=== PATIENT | female | born 1930 | race Caucasian/White ===

== ENCOUNTER → 2017-03-03 | Outpatient (CLI) | payer MEDICARE, BC ==
[~2017-03-03] MED LIST: REGADENOSON 0.4 MG/5 ML SYRINGE ONE
== END | disposition home or self-care (01) ==
LOC: CVU 06:39
PROVIDERS: ATTEND Internal Medicine Cardiovascular Disease
DX: I49.3 Ventricular premature depolarization (principal); Q21.1 Atrial septal defect; Z87.891 Personal history of nicotine dependence; I08.1 Rheumatic disorders of both mitral and tricuspid valves; E78.5 Hyperlipidemia, unspecified
CPT/HCPCS: 93306; J2785

== ENCOUNTER → 2017-03-04 | Outpatient (CLI) | payer MEDICARE, BC | END | disposition home or self-care (01) | LOC: CFH 07:50 | PROVIDERS: ATTEND Internal Medicine Cardiovascular Disease | DX: I49.3 Ventricular premature depolarization (principal) | CPT/HCPCS: 78452; 93017; A9502 ==

== ENCOUNTER 2019-04-03 11:07 | Emergency (ER) | payer MEDICARE, BC ==
[~2019-04-03] VITALS: Ht 170.2 cm; Wt 78.0 kg
--- NOTE | 2019-04-03 11:52 | NUR ---
assumed care at this time.
[2019-04-03] MEDS ORDERED: HYDROcodone/APAP 5/325 TABLET ONE (11:54)
--- NOTE | 2019-04-03 11:57 | NUR ---
Pt arrives today from home with lower right flank area rash that wraps around to the torso. Pt has small red vesicles on flank area that are very painful. Pt deneis hx of shingles or chicken pox. Pt reports that other than the pain on her rash she has no other complaints. Pt given ua cup to provide sample.
[2019-04-03] MEDS ORDERED: SODIUM CHLORIDE FLUSH 10ML SYR IVF ONE (12:00)
[2019-04-03] MEDS ORDERED: APIX2.5T PO (12:03)
[2019-04-03] MEDS ORDERED: TELM1TAB3 PO (12:06)
[2019-04-03] MEDS ORDERED: METO25TA91 PO (12:06)
[2019-04-03] MEDS ORDERED: ATOR40TA78 PO (12:06)
[2019-04-03] MEDS ORDERED: CALC1CAP8 PO (12:06)
[2019-04-03] MEDS ORDERED: FURO20TA3 PO (12:06)
--- NOTE | 2019-04-03 12:06 | NUR ---
LATE NOTE ENTRY FOR 1140: Pt resting on gurney. Spouse at bedside. NADN. Pt states she has had right flank pain starting on . Pt states, "I have had dry heaves but no vomiting or diarrhea." Pt has vesicular erythematous rash on RLQ abdomen to right flank discoverd upon physical assessment. Pt states she was unaware of rash prior to physical assessment.
--- NOTE | 2019-04-03 12:08 | NUR ---
Late note entry for 1156: Provided repor to KRISTI Walters. All questions answered. KRISTI Walters to assume care of pt at this time.
--- NOTE | 2019-04-03 12:19 | NUR ---
labs drawn and sent to lab. UA collected and sent to lab.
--- NOTE | 2019-04-03 12:24 | NUR ---
pt medicated per pain.
[2019-04-03 12:27] LABS: BASOPHILS # (AUTO) 0.02 x10^3/uL (0-0.1); BASOPHILS % (AUTO) 0 % (0-1); EOSINOPHILS # (AUTO) 0.01 x10^3/uL (0-0.4); EOSINOPHILS % (AUTO) 0 % (1-7); LYMPHOCYTES # (AUTO) 1.04 x10^3/uL (1-3.4); LYMPHOCYTES % (AUTO) 13 % (22-44); MD NO; MEAN CORPUSCULAR HEMOGLOBIN 31.4 pg (27.0-34.8); MEAN CORPUSCULAR HGB CONC 32.8 g/dL (32.4-35.8); MEAN CORPUSCULAR VOLUME 95.7 fL (80-100); MEAN PLATELET VOLUME 9.9 fL (7.4-10.4); MONOCYTES # (AUTO) 0.43 x10^3/uL (0.2-0.8); MONOCYTES % (AUTO) 5 % (2-9); NEUTROPHILS # (AUTO) 6.49 x10^3/uL (1.8-6.8); NEUTROPHILS % (AUTO) 81 % (42-75); PLATELET COUNT 196 x10^3/uL (130-400); RED BLOOD COUNT 5.05 x10^6/uL (3.82-5.3); RED CELL DISTRIBUTION WIDTH 14.2 % (9.6-15.2)
[2019-04-03] MEDS ORDERED: HYDROcodone/APAP 5/325 TABLET PO ONE (12:30)
[2019-04-03 12:43] LABS: ALANINE AMINOTRANSFERASE 28 U/L (12-78); ALBUMIN 3.5 g/dL (3.4-5.0); ANION GAP 11 mmol/L (5-15); CALCIUM 10.6 mg/dL (8.5-10.1); CHLORIDE 105 mmol/L (98-107); CREATININE 1.74 mg/dL (0.55-1.02)
[2019-04-03 12:45] LABS: ALKALINE PHOSPHATASE 79 U/L (45-117); BILIRUBIN,TOTAL 1.2 mg/dL (0.2-1.0); TOTAL PROTEIN 7.8 g/dL (6.4-8.2)
--- NOTE | 2019-04-03 12:52 | NUR ---
Pt is reporting feeling much better now after the [place] tablet. Pt resting in bed smiling.
[2019-04-03 12:54] LABS: MICROSCOPIC AUTO
[2019-04-03 13:04] LABS: CULTURE INDICATED? YES
[2019-04-03] MEDS ORDERED: CEFTRIAXONE PMX 1GM/50ML 50 ML ONE (13:20)
[2019-04-03] MEDS ORDERED: CEFTRIAXONE PMX 1GM/50ML 50 ML IV ONE (13:30)
--- NOTE | 2019-04-03 13:30 | NUR ---
clinical quality assurance associate called to ask for eta of exam. Per Milagros pt is next.
[2019-04-03 13:41] VITALS: BP 154/92
--- NOTE | 2019-04-03 13:41 | NUR ---
PT MEDICATED PER EMAR.
--- NOTE | 2019-04-03 14:34 | NUR ---
Patient/Caregiver given discharge instructions and they have confirmed that they understand the instructions. Patient ambulatory with steady gait.
== END 2019-04-03 14:48 | disposition home or self-care (01) ==
LOC: ED 12:46
DX: N39.0 Urinary tract infection, site not specified (principal); B02.9 Zoster without complications; I10 Essential (primary) hypertension; E78.5 Hyperlipidemia, unspecified; R11.0 Nausea
CPT/HCPCS: 36415; 74176; 80053; 81001; 83690; 85025; 87077; 87086; 87186; 96365; 99284; J0696